=== PATIENT | male | born 1950 | race Caucasian/White ===

== ENCOUNTER 2018-06-28 03:17 | Emergency (ER) | payer MEDICARE, OTHER ==
[2018-06-28] MEDS ORDERED: IOVERSOL 320 100 ML VIAL IVP ONE ×3 (03:18→05:36)
[2018-06-28 04:34] LABS: CALCIUM 8.4 mg/dL (8.5-10.3); CREATININE 1.4 mg/dL (0.6-1.2)
[2018-06-28] MEDS ORDERED: POTASSIUM CHLOR 10 MEQ/100 ML 10 MEQ/100 ML BAG IV ONE (04:46)
[2018-06-28] MEDS ORDERED: POTASSIUM CHLORIDE 20 MEQ TABLET PO STA (04:46)
--- NOTE | 2018-06-28 05:25 | ED Physician Documentation ---
PD HPI FOCAL NEURO - Stated complaint Stated Complaint: L HAND NUMB - Chief complaint Chief Complaint: Neuro - History obtained from History obtained from: Patient, Family (spouse) - History of Present Illness Timing - onset: How many days ago (5) Timing - details: Still present Severity of deficit: Moderate Weakness: Hand, Right Associated symptoms: Neck pain Baseline status: positive: A&OX3, ambulatory, indep Similar symptoms before: Has not had sx before - Additional information Additional information: The patient is a 67-year-old male who presents with weakness of his right upper extremity. 5 days ago he experienced pain in his right hand, followed by weakness and numbness in his right hand. The pain has resolved, but he still cannot extend his hand at the wrist. His noticed associated drooping of his right eyelid and noticed that he was "tripping over his words." The speech difficulty and eyelid drooping resolved, as did the pain in the right hand. Today the patient experienced similar symptoms of the left hand, with transient pain and numbness of the hand, lasting for about 1 hour before resolving spontaneously. He has had no involvement of the lower extremities. His only remaining symptom is weakness of the right upper extremity. He denies fever or headache. He has experienced some discomfort in his neck. He has no history of similar symptoms in the past. His past history is significant for ORIF of right ankle fracture. He had postoperative MRSA infection. Review of Systems Constitutional: denies: Fever, Fatigue Eyes: denies: Decreased vision Ears: denies: Tinnitus/ringing Nose: denies: Congestion Throat: denies: Sore throat Cardiac: denies: Chest pain / pressure, Palpitations Respiratory: denies: Dyspnea, Cough GI: denies: Abdominal Pain, Nausea, Vomiting : denies: Dysuria, Incontinent Skin: denies: Rash Musculoskeletal: reports: Neck pain (mild, right > left.). denies: Back pain, Joint pain, Extremity swelling Neurologic: reports: Focal weakness (Right upper extremity.). denies: Altered mental status, Headache PD PAST MEDICAL HISTORY - Past Medical History Past Medical History: Yes Cardiovascular: None Respiratory: None Endocrine/Autoimmune: None GI: GERD : None HEENT: None Psych: Other Musculoskeletal: Other Derm: None Other Past Medical History: Insomnia; Chronic leg pain bilat - Past Surgical History Past Surgical History: Yes Ortho: Other HEENT: Tonsil/Adenoidectomy - Present Medications Home Medications: Ambulatory Orders Medication Instructions Recorded Confirmed Oxycodone HCl/Acetaminophen 1 each PO Q4HR PRN 08/09/15 06/28/18 [Percocet 10-325 mg Tablet] Pregabalin [Lyrica] 150 mg PO TID 08/09/15 06/28/18 Zolpidem [Ambien] 10 mg PO HS 08/09/15 06/28/18 - Allergies Allergies/Adverse Reactions: Allergies Allergy/AdvReac Type Severity Reaction Status Date / Time No Known Drug Allergies Allergy Verified 06/28/18 03:30 - Social History Does the pt smoke?: No Smoking Status: Never smoker Does the pt drink ETOH?: No Does the pt have substance abuse?: No - Immunizations Immunizations are current?: Yes - POLST Patient has POLST: No PD ED PE NORMAL - Vitals Vital signs reviewed: Yes (normal) - General General: Alert and oriented X 3, Well developed/nourished - HEENT HEENT: Atraumatic, PERRL, EOMI, Pharynx benign - Neck Neck: Supple, no meningeal sign, No bony TTP, No adenopathy, No JVD, Other (Mild tenderness to palpation along the paracervical musculature, right greater than left. Range of motion to the left exacerbates the pain on the right.) - Cardiac Cardiac: RRR, No murmur - Respiratory Respiratory: No respiratory distress, Clear bilaterally - Abdomen Abdomen: Soft, Non tender - Back Back: No CVA TTP, No spinal TTP - Derm Derm: No rash - Extremities Extremities: No calf tenderness / cord, Other (Lymphedema of the right lower extremity.) - Neuro Neuro: Alert and oriented X 3, manager functional 2-12 intact, No sensory deficit, Normal speech, Other (There is right wrist drop, with profound weakness of wrist extensors. There is mild weakness of wrist flexors. Light touch sensation is intact. No motor or sensory deficit is detected in the left upper extremity or the lower extremities.) Eye Opening: Spontaneous Motor: Obeys Commands Verbal: Oriented GCS Score: 15 Results - Vitals Vitals: Vital Signs - 24 hr 06/28/18 06/28/18 06/28/18 03:20 05:24 06:00 Temperature 37.4 C 36.5 C Heart Rate 99 79 79 Respiratory 18 16 16 Rate Blood Pressure 138/61 H 137/79 H 141/78 H O2 Saturation 100 97 99 06/28/18 06/28/18 06:14 07:00 Temperature 36.5 C Heart Rate 74 77 Respiratory 18 16 Rate Blood Pressure 136/78 H 141/75 H O2 Saturation 100 100 Oxygen O2 Source Room air - Labs Labs: Laboratory Tests 06/28/18 04:13 Sodium 136 Potassium 2.9 L Chloride 96 L Carbon Dioxide 25 Anion Gap 15.0 H BUN 19 Creatinine 1.4 H Estimated GFR (MDRD) 51 L Glucose 80 Calcium 8.4 L - Rads (name of study) Head CT w/o and w/contrast Radiology: Prelim report reviewed, EMP read contemporaneously, See rad report (1) No evidence of mass, infarct, or other focal abnormality. 2)Moderate ventriculomegaly. Differential considerations include central volume loss and NPH.) CT neck w/contrast Radiology: Prelim report reviewed, EMP read contemporaneously, See rad report (1) No CT evidence of central canal narrowing. 2) Mild left C2-C3, moderate right C4-C5, mild left C4-C5, and moderate right C5-C6 neural foraminal narrowing. 3) Remote appearing T1 compression fracture with 30% anterior height loss.) PD MEDICAL DECISION MAKING - ED course Complexity details: reviewed old records, reviewed results, re-evaluated p atient, considered differential, d/w patient, d/w family ED course: The patient's presentation is most consistent with a right radial nerve palsy. Central nervous system source was considered, but is less likely. Head CT with and without contrast revealed no abnormalities to account for the patient's neurologic deficit, cervical spine CT with contrast also did not reveal specific abnormality to account for the patient's symptoms. While his only current neurologic deficit is right radial nerve palsy, his history is suggestive of possible transient ptosis of the right eye, and transient involvement of the left upper extremity. This would be an unusual presentation for TIAs or for multiple sclerosis. His laboratory results reveal a low potassium of 2.9. Supplemental potassium was administered: 20 mEq orally and 10 mEq IV. Further treatment in the emergency department included application of a right wrist splint. I discussed with the patient and his the results of his imaging studies, and DVD copies were made for him to take to follow-up appointments. He is advised to contact his primary physician today and neurology follow-up is recommended. I discussed with them potentially worrisome signs or symptoms that should prompt reevaluation in the emergency department. Departure - Departure Disposition: 01 Home, Self Care Clinical Impression: Focal motor deficit Condition: Stable Instructions: ED Palsy Radial Nerve Follow-Up: [facility] [Primary Care Provider] - Comments: He can use ibuprofen, up to 800 mg 3 times daily for anti-inflammatory effect. Use the wrist splint if it provides comfort. Follow-up with your primary physician within 1 week if possible call to schedule an appointment. Take the DVD copy of your CT scans with you to the appointment. Return to the emergency department if you develop increasing numbness or weakness, or otherwise worsening symptoms. Discharge Date/Time: 06/28/18 07:10
--- NOTE | 2018-06-28 05:43 | CT Report ---
Reason: right sided neuro deficits, and transient left UE. Procedure Date: 06/28/2018 Accession Number: [id number] / [id number] Procedure: CT - HEAD W/WO CPT Code: FULL RESULT: EXAM: CT HEAD EXAM DATE: 06/28/2018 05:08 AM. CLINICAL HISTORY: Right hand numbness COMPARISON: None. TECHNIQUE: Multiaxial CT images were obtained from the foramen magnum to the vertex. Reformats: Sagittal and coronal. IV contrast: None. In accordance with CT protocol optimization, one or more of the following dose reduction techniques were utilized for this exam: automated exposure control, adjustment of mA and/or KV based on patient size, or use of iterative reconstructive technique. FINDINGS: Parenchyma: No intraparenchymal hemorrhage. No evidence of mass, midline shift, or CT findings of infarction. Mo-white differentiation is distinct. Extraaxial Spaces: Diffuse prominence of extra-axial spaces. Enlarged foramen magnum. No subdural or epidural collections identified. Ventricles: Moderate dilatation of lateral, third, and fourth ventricles. No mass-effect. No midline shift. Sinuses and Orbits: Imaged paranasal sinuses, orbits, and mastoids show no significant abnormality. Bones: No evidence of fracture or calvarial defect. Other: None. IMPRESSION: 1. No evidence of mass, infarct, or other focal abnormality. 2. Moderate ventriculomegaly. Differential considerations include central volume loss and NPH. RADIA ADDENDUM: 06/28/18 05:55 Exam performed both without and with contrast. IV contrast dose: 80 mL Optiray 320. Postcontrast FINDINGS: No enhancing abnormality. Normal opacification of venous sinuses.
[2018-06-28] MEDS ORDERED: KETOROLAC 30 MG/ML VIAL IVP STA (05:57)
[2018-06-28] MEDS ORDERED: SODIUM CHLORIDE 0.9% 1,000 ML IV ONE (05:57)
--- NOTE | 2018-06-28 06:02 | CT Report ---
Reason: neuro deficit right upper extremity. Procedure Date: 06/28/2018 Accession Number: [id number] / [id number] Procedure: CT - CERVICAL SPINE W CPT Code: FULL RESULT: EXAM: CT CERVICAL SPINE WITH CONTRAST EXAM DATE: 06/28/2018. CLINICAL HISTORY: Right hand numbness, decreased mine engineer strength COMPARISONS: HEAD W/WO 06/28/2018 5:08 AM. TECHNIQUE: Thin-section axial images were acquired of the cervical spine after administration of intravenous contrast. Post-processing: Coronal and sagittal reformats. Other: None. IV contrast: CONTRAST. In accordance with CT protocol optimization, one or more of the following dose reduction techniques were utilized for this exam: automated exposure control, adjustment of mA and/or KV based on patient size, or use of iterative reconstructive technique. FINDINGS: Alignment: No scoliosis or spondylolisthesis. Bones: There is height loss of T1 vertebral body there is deformity of superior endplate with 30% height loss of T1 vertebral body. No discrete fracture line. No adjacent soft tissue swelling. Interspace Levels/Facets: C1-C2: Unremarkable. C2-C3: There is moderate left facet hypertrophy. Mild left neural foraminal narrowing. C3-C4: There is moderate left facet hypertrophy. No central canal or neural foraminal narrowing. C4-C5: Disk height loss and osteophytosis. Moderate left and mild right facet hypertrophy. Moderate right and mild left neural foraminal narrowing. C5-C6: Disk height loss and endplate osteophytosis. No central canal narrowing. Moderate right neural foraminal narrowing. C6-C7: Disk height loss. No central canal narrowing. No significant neural foraminal narrowing. C7-T1: Unremarkable. Spinal Canal: No abnormally enhancing areas by CT. Musculature: Normal. No fatty atrophy. Other: The paravertebral and prevertebral soft tissues are normal. The lung apices are clear. IMPRESSION: 1. No CT evidence of central canal narrowing. 2. Mild left C2-C3, moderate right C4-C5, mild left C4-C5, and moderate right C5-C6 neural foraminal narrowing. 3. Remote appearing T1 compression fracture with 30% anterior height loss.. RADIA
[2018-06-28 07:37] VITALS: BP 141/75
== END 2018-06-28 07:10 | disposition home or self-care (01) ==
LOC: ED 03:17
DX: G56.31 Lesion of radial nerve, right upper limb (principal); R29.818 Other symptoms and signs involving the nervous system; I89.0 Lymphedema, not elsewhere classified; M48.02 Spinal stenosis, cervical region
CPT/HCPCS: 36415; 70470; 72126; 80048; 96361; 96365; 96375; 99283; 99285; A9270; Q9967

== ENCOUNTER 2018-08-07 20:53 | Emergency (ER) | payer MEDICARE, OTHER ==
--- NOTE | 2018-08-07 22:27 | ED Physician Documentation ---
History of Present Illness - Stated complaint Stated Complaint: BI LEG WOUND PX - Chief complaint Chief Complaint: Ext Problem - History obtained from History obtained from: Patient - History of Present Illness Timing: Chronic (but symptoms worsening over past 2-3 days) Pain level now: 6 Improved by: rest, elevation - Additonal information Additional information: Patient complains of bilateral lower extremity swelling and shooting pains. There is patchy redness on the left lower leg which has spread proximally over past 2 to 3 days. spouse says he had fever 102 yesterday and that he has had nausea and poor appetite, with some vomiting today Review of Systems Constitutional: reports: Fever. denies: Chills, Sweats GI: reports: Nausea, Vomiting. denies: Abdominal Pain Skin: reports: Rash Musculoskeletal: reports: Extremity pain, Extremity swelling PD PAST MEDICAL HISTORY - Past Medical History Cardiovascular: None Respiratory: None Endocrine/Autoimmune: None GI: GERD : None HEENT: None Psych: Other Musculoskeletal: Other Derm: None - Past Surgical History Past Surgical History: Yes Ortho: Other HEENT: Tonsil/Adenoidectomy - Present Medications Home Medications: Ambulatory Orders Medication Instructions Recorded Confirmed Oxycodone HCl/Acetaminophen 1 each PO Q4HR PRN 08/09/15 06/28/18 [Percocet 10-325 mg Tablet] Pregabalin [Lyrica] 150 mg PO TID 08/09/15 06/28/18 Zolpidem [Ambien] 10 mg PO HS 08/09/15 06/28/18 Clindamycin HCl [Clindamycin 300MG 300 mg PO Q6H #28 capsule 08/08/18 CAP] HYDROmorphone [Dilaudid] 2 mg PO Q4H PRN #20 tablet 08/08/18 - Allergies Allergies/Adverse Reactions: Allergies Allergy/AdvReac Type Severity Reaction Status Date / Time No Known Drug Allergies Allergy Verified 06/28/18 03:30 - Social History Does the pt smoke?: No Smoking Status: Never smoker Does the pt drink ETOH?: No Does the pt have substance abuse?: No - Immunizations Immunizations are current?: Yes - POLST Patient has POLST: No PD ED PE NORMAL - Vitals Vital signs reviewed: Yes - General General: Alert and oriented X 3, No acute distress, Well developed/nourished - Cardiac Cardiac: RRR, No murmur - Respiratory Respiratory: No respiratory distress, Clear bilaterally - Neuro Neuro: No motor deficit, No sensory deficit PD ED PE EXPANDED - Extremities Extremities: Pedal edema bilateral MISSY LE visual: 1 - rash (patchy erythema with clear/straw colored weeping) 2 - deformity (ulcer, dry and without exudate or significant erythema) Results - Vitals Vitals: Oxygen O2 Source Room air - Labs Labs: Laboratory Tests 08/07/18 08/07/18 08/07/18 23:03 23:03 23:03 WBC 8.9 RBC 3.96 L Hgb 8.3 L Hct 27.9 L MCV 70.4 L MCH 20.9 L MCHC 29.7 L RDW 22.3 H Plt Count 288 MPV 7.9 Neut # (Auto) 7.0 H Lymph # (Auto) 1.1 L Emmons # (Auto) 0.7 Eos # (Auto) 0.1 Baso # (Auto) 0.1 Absolute Nucleated RBC 0.01 Nucleated RBC % 0.1 Manual Slide Review Indicated Platelet Estimate NORMAL (130-450,000) Platelet Morphology NORMAL APPEARANCE RBC Morph Micro Appear 1+ MACROCYTOSIS Sodium 135 Potassium 3.3 L Chloride 100 L Carbon Dioxide 26 Anion Gap 9.0 BUN 12 Creatinine 1.1 Estimated GFR (MDRD) 67 L Glucose 100 Lactic Acid Calcium 8.4 L B-Natriuretic Peptide 739 H 08/07/18 23:03 WBC RBC Hgb Hct MCV MCH MCHC RDW Plt Count MPV Neut # (Auto) Lymph # (Auto) Emmons # (Auto) Eos # (Auto) Baso # (Auto) Absolute Nucleated RBC Nucleated RBC % Manual Slide Review Platelet Estimate Platelet Morphology RBC Morph Micro Appear Sodium Potassium Chloride Carbon Dioxide Anion Gap BUN Creatinine Estimated GFR (MDRD) Glucose Lactic Acid 0.9 Calcium B-Natriuretic Peptide PD MEDICAL DECISION MAKING - ED course Complexity details: reviewed old records, reviewed results, re-evaluated patient, considered differential, d/w patient, d/w family Departure - Departure Disposition: 01 Home, Self Care Clinical Impression: Cellulitis Qualifiers: Site of cellulitis: extremity Site of cellulitis of extremity: lower extremity Laterality: left Qualified Code(s): L03.116 - Cellulitis of left lower limb Condition: Good Instructions: ED Infec Skin Cellulitis Follow-Up: [facility] [Primary Care Provider] - Prescriptions: Clindamycin HCl [Clindamycin 300MG CAP] 300 mg PO Q6H #28 capsule HYDROmorphone [Dilaudid] 2 mg PO Q4H PRN #20 tablet PRN Reason: Pain Discharge Date/Time: 08/08/18 03:01
[2018-08-07] MEDS ORDERED: SODIUM CHLORIDE 0.9% 500 ML IV STA (22:51)
[2018-08-07] MEDS ORDERED: cefTRIAXone 1 GM in SODIUM CHLORIDE 0.9% MINIBAG 100 ML IV STA (22:51)
[2018-08-07] MEDS ORDERED: HYDROmorphone 1 MG/ML CARPUJECT IVP STA ×2 (22:51→23:38)
[2018-08-07] MEDS ORDERED: ONDANSETRON 4 MG/2 ML VIAL IVP STA (22:51)
[2018-08-07 23:18] LABS: BASOPHILS # (AUTO) 0.1 10^3/uL (0.0-0.1); BASOPHILS % (AUTO) 0.7 %; CALCIUM 8.4 mg/dL (8.5-10.3); CREATININE 1.1 mg/dL (0.6-1.2); EOSINOPHILS # (AUTO) 0.1 10^3/uL (0.0-0.7); EOSINOPHILS % (AUTO) 0.9 %; HGB - HEMOGLOBIN 8.3 g/dL (14.0-18.0); LYMPHOCYTES # (AUTO) 1.1 10^3/uL (1.5-3.5); LYMPHOCYTES % (AUTO) 12.1 %; MEAN CORPUSCULAR HEMOGLOBIN 20.9 pg (27.0-31.0); MEAN CORPUSCULAR HGB CONC 29.7 g/dL (32.0-36.0); MEAN CORPUSCULAR VOLUME 70.4 fL (80.0-94.0); MEAN PLATELET VOLUME 7.9 fL (7.4-11.4); MONOCYTES # (AUTO) 0.7 10^3/uL (0.0-1.0); MONOCYTES % (AUTO) 7.8 %; NEUTROPHILS % (AUTO) 78.5 %; PLT - PLATELET COUNT 288 10^3/uL (130-450); RED BLOOD COUNT 3.96 10^6/uL (4.70-6.10); RED CELL DISTRIBUTION WIDTH 22.3 % (12.0-15.0); WHITE BLOOD COUNT 8.9 x10^3/uL (4.8-10.8)
[2018-08-07 23:34] LABS: PLATELET ESTIMATE, MANUAL NORMAL (130-450,000) (NORMAL); PLATELET MORPHOLOGY NORMAL APPEARANCE (NORMAL)
[2018-08-08] MEDS ORDERED: HYDROmorphone 1 MG/ML CARPUJECT IVP STA (02:40)
[2018-08-08 03:00] VITALS: BP 153/93
== END 2018-08-08 03:01 | disposition home or self-care (01) ==
LOC: ED 20:53
DX: L03.116 Cellulitis of left lower limb (principal); L97.319 Non-pressure chronic ulcer of right ankle with unspecified severity
CPT/HCPCS: 36415; 80048; 83605; 83880; 85025; 96365; 96375; 96376; 99283; 99284; J1170

== ENCOUNTER 2019-04-25 14:43 | Outpatient (CLI) | payer MEDICARE, OTHER | END 2019-04-25 14:44 | disposition EMS.NT | LOC: EMS 14:43 | PROVIDERS: ATTEND Surgery | DX: S00.83XA Contusion of other part of head, initial encounter (principal); V58.5XXA Driver of pick-up truck or van injured in noncollision transport accident in traffic accident, initial encounter; W22.10XA Striking against or struck by unspecified automobile airbag, initial encounter; Y92.410 Unspecified street and highway as the place of occurrence of the external cause ==

== ENCOUNTER 2019-06-26 23:52 | Outpatient (CLI) | payer MEDICARE, OTHER | END 2019-06-26 23:59 | disposition EMS.NT | LOC: EMS 23:52 | PROVIDERS: ATTEND Surgery | DX: Z04.1 Encounter for examination and observation following transport accident (principal) ==

== ENCOUNTER 2019-06-27 06:14 | Outpatient (CLI) | payer MEDICARE, OTHER | END 2019-06-27 06:15 | disposition critical access hospital (66) | LOC: EMS 06:14 | PROVIDERS: ATTEND Surgery | DX: I46.9 Cardiac arrest, cause unspecified (principal) | CPT/HCPCS: A0425; A0427 ==

== ENCOUNTER 2019-06-27 06:25 | Emergency (ER) | payer MEDICARE, OTHER ==
[2019-06-27] MEDS ORDERED: EPINEPHrine 1 MG/ML AMP ONE (06:38)
[2019-06-27] MEDS ORDERED: SODIUM CHLORIDE 0.9% 1,000 ML IV ONE ×2 (06:40→07:20)
[2019-06-27] MEDS ORDERED: EPINEPHrine 4 MG in DEXTROSE 5% 246 ML IVP STA ×2 (06:45→09:44)
[2019-06-27 06:49] LABS: BASOPHILS % (AUTO) 0.4 %; EOSINOPHILS % (AUTO) 0.5 %; LYMPHOCYTES % (AUTO) 29.2 %; MEAN CORPUSCULAR HEMOGLOBIN 20.6 pg (27.0-31.0); MEAN CORPUSCULAR HGB CONC 25.2 g/dL (32.0-36.0); MEAN CORPUSCULAR VOLUME 81.7 fL (80.0-94.0); MEAN PLATELET VOLUME 9.8 fL (7.4-11.4); MONOCYTES % (AUTO) 3.5 %; NEUTROPHILS % (AUTO) 58.2 %; PLT - PLATELET COUNT 140 10^3/uL (130-450); RED BLOOD COUNT 2.57 10^6/uL (4.70-6.10); RED CELL DISTRIBUTION WIDTH 20.6 % (12.0-15.0); WHITE BLOOD COUNT 7.7 x10^3/uL (4.8-10.8)
[2019-06-27 06:57] LABS: INR 1.3 (0.8-1.2); PT - PROTHROMBIN TIME 14.4 secs (9.9-12.6)
[2019-06-27 07:04] LABS: PARTIAL THROMBOPLASTIN TIME 77.2 secs (24.9-33.3)
[2019-06-27 07:05] LABS: HGB - HEMOGLOBIN 5.3 g/dL (14.0-18.0)
[2019-06-27 07:06] LABS: ABNORMAL LYMPHS % (MANUAL) 0 %
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
[2019-06-27] MEDS ORDERED: IOVERSOL 320 100 ML VIAL IVP ONE ×3 (07:29→09:55)
[2019-06-27 07:36] LABS: BAND NEUTROPHILS % (MANUAL) 5 %; LYMPHOCYTES # (MANUAL) 2.8 10^3/uL (1.5-3.5); LYMPHOCYTES % (MANUAL) 36 %; METAMYELOCYTES % (MANUAL) 1 %; MONOCYTES # (MANUAL) 0.3 10^3/uL (0.0-1.0)
[2019-06-27 07:37] LABS: DIFFERENTIAL COMMENT MANUAL DIFFERENTIAL; PLATELET ESTIMATE, MANUAL NORMAL (130-450,000) (NORMAL); PLATELET MORPHOLOGY NORMAL APPEARANCE (NORMAL)
[2019-06-27 07:48] LABS: ALBUMIN/GLOBULIN RATIO 0.7 (1.0-2.2); BILIRUBIN,TOTAL 0.4 mg/dL (0.2-1.0); CALCIUM 8.1 mg/dL (8.5-10.3); CREATININE 2.2 mg/dL (0.6-1.2); SALICYLATE 7.3 mg/dL
[2019-06-27 08:05] LABS: HGB - HEMOGLOBIN 5.9 g/dL (14.0-18.0)
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
[2019-06-27 08:12] LABS: MUDS CUTOFF CONCENTRATIONS CUTOFF CONC BELOW:
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
[2019-06-27 08:18] LABS: BILIRUBIN,URINE NEGATIVE (NEGATIVE); GLUCOSE, URINE (UA) NEGATIVE (NEGATIVE); KETONES,URINE (UA) NEGATIVE (NEGATIVE); LEUKOCYTE ESTERASE, URINE NEGATIVE (NEGATIVE); NITRITE,URINE NEGATIVE (NEGATIVE); OCCULT BLOOD,URINE TRACE-INTA (NEGATIVE); PH,URINE 5.5 PH (5.0-7.5); PROTEIN,URINE 30 mg/dL (NEGATIVE); UROBILINOGEN,URINE 0.2 (NORMAL) E.U./dL (NORMAL)
[2019-06-27 08:20] LABS: CLARITY,URINE HAZY (CLEAR)
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
--- NOTE | 2019-06-27 08:24 | ANESTHESIA PROCEDURE NOTE ---
Anesth Central Line Template - Central Line Central Line Preparation: Unable to obtain consent, Time out completed, Ultra sound used Central line location: Right IJ Central line type: Triple lumen Central line catheter tip site resides: waiting for rediolographic confirmation Central line aftercare: Chlorhexidine disc placed, Secured, No pneumothorax, No complications, Bundle checklist complete, Pt tolerated well, Other (Waiting for radiographic confirmation. Patient intubated on epi drip. Emergency CVL required. Consent not obtained for CVL. tripple lumen 7 korean cvl placed.)
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
[2019-06-27 08:34] LABS: BACTERIA,URINE Few /HPF (None Seen); CASTS, URINE 0-2 Hyaline Casts /LPF; EPITHELIAL CELLS,UR FEW Renal Tubular /HPF (<= Few); RBC,URINE 0-5 /HPF (0-5); SPERM,URINE PRESENT; SQUAMOUS EPITHELIAL CELL,UR RARE Squamous (<= Few)
[2019-06-27 08:35] LABS: AMPHETAMINE SCREEN,URINE NEGATIVE (NEGATIVE); BENZODIAZEPINES SCREEN, URINE NEGATIVE (NEGATIVE); COCAINE SCREEN URINE NEGATIVE (NEGATIVE); METHADONE SCREEN, URINE NEGATIVE (NEGATIVE); METHAMPHETAMINES SCREEN, URINE NEGATIVE (NEGATIVE); OPIATE SCREEN, URINE NEGATIVE (NEGATIVE); OXYCODONE SCREEN, URINE POSITIVE (NEGATIVE); PROPOXYPHENE SCREEN, URINE NEGATIVE (NEGATIVE); TRICYCLIC ANTIDEPRESSANT,URINE NEGATIVE (NEGATIVE)
[2019-06-27 08:38] LABS: ABG BASE EXCESS -19.6 mmol/L (-2.0-3.0); ABG HCO3 9.4 mmol/L (22.0-26.0); ABG OXYGEN SATURATION 100 % (94-98); ABG PCO2 35 mmHg (34-45); ALLEN TEST POSITIVE
[2019-06-27 08:40] LABS: ABG PH 7.05 (7.35-7.45); ABG PO2 463 mmHg (80-100); ABG TCO2 10.4 MMOL/L (21.0-29.0)
[2019-06-27] MEDS ORDERED: SODIUM BICARBONATE 150 MEQ in DEXTROSE 5% 1,000 ML IV STA (08:42)
--- NOTE | 2019-06-27 08:45 | XRAY Report ---
Reason: NG LINE PLACEMENT Procedure Date: 06/27/2019 Accession Number: [id number] / [id number] Procedure: XR - Abdomen 1 View X-Ray CPT Code: 73046 Final Report FULL RESULT: EXAM: ABDOMEN RADIOGRAPHY EXAM DATE: 06/27/2019 08:33 AM. CLINICAL HISTORY: NG line placement. COMPARISON: CHEST 1 VIEW 06/27/2019 6:22 AM. TECHNIQUE: 1 view. FINDINGS: Bowel Gas Pattern: The bowel gas pattern is largely obscured by the trauma board. Other: The soft tissues of the abdomen are also obscured by the trauma board. There are multiple tubes and lines overlying the upper abdomen. There is a line entering the abdomen in the region of the esophagus, terminating in the region of the gastric fundus. IMPRESSION: NG tube in satisfactory position. RADIA
--- NOTE | 2019-06-27 08:46 | XRAY Report ---
Reason: new IJ central line places, new orogastric tube Procedure Date: 06/27/2019 Accession Number: [id number] / [id number] Procedure: XR - Chest for Line Placement CPT Code: Final Report FULL RESULT: EXAM: CHEST RADIOGRAPHY EXAM DATE: 06/27/2019 08:33 AM. CLINICAL HISTORY: New internal jugular central line placement. New orogastric tube. COMPARISON: CHEST 1 VIEW 06/27/2019 6:22 AM. TECHNIQUE: 1 view. FINDINGS: Lungs/Pleura: There is persistent patchy consolidation of both lungs. Mediastinum: There is mild cardiac enlargement. Other: ETT, right IJV line and NG tube are in satisfactory position. IMPRESSION: New tubes and lines in satisfactory position. RADIA
--- NOTE | 2019-06-27 09:13 | CT Report ---
Reason: Neck trauma, midline tenderness Procedure Date: 06/27/2019 Accession Number: [id number] / [id number] Procedure: CT - CERVICAL SPINE WO CPT Code: Final Report FULL RESULT: EXAM: CT CERVICAL SPINE WITHOUT CONTRAST DATE: 06/27/2019 07:21 AM. HISTORY: Neck trauma, midline tenderness. COMPARISONS: CT HEAD WO 06/27/2019 7:[address] CHEST W 06/27/2019 7:[address] cervical spine 06/28/2018. TECHNIQUE: Thin-section axial images were acquired of the cervical spine without contrast. Post-processing: Coronal and sagittal reformats. Other: None. In accordance with CT protocol optimization, one or more of the following dose reduction techniques were utilized for this exam: automated exposure control, adjustment of mA and/or KV based on patient size, or use of iterative reconstructive technique. FINDINGS: Alignment: There is mild right convex curvature of the cervical spine. No scoliosis. Bones: No fracture or bone lesion of the cervical spine. There is mild anterior wedging with superior endplate compression deformity of the T1 vertebral body, unchanged compared to 06/28/2018. Interspace Levels/Facets: C1-C2: There are minimal degenerative changes at the atlantodental joint. C2-C3: There is mild disk height loss, mild degenerative change of the right facet joint, and moderate degenerative change of the left facet joint. C3-C4: Mild disk height loss, mild degenerative change of the right facet joint, and moderate degenerative change of the left facet joint. C4-C5: Mild disk height loss, mild degenerative change of the right facet joint, and moderate degenerative change of the left central. C5-C6: Moderate disk height loss and anterior endplate osteophyte formation. There are mild bilateral degenerative facet changes. C6-C7: Moderate disk height loss and anterior endplate ossified formation. There are mild bilateral degenerative facet changes. C7-T1: Mild disk height loss and mild bilateral degenerative facet changes. Musculature: Normal. No fatty atrophy. Other: Endotracheal tube is present, limiting evaluation of the prevertebral soft tissues. The paravertebral and prevertebral soft tissues are unremarkable. There are patchy areas of consolidation in the bilateral lung apices. IMPRESSION: 1. No fracture or other acute osseous abnormality of the cervical spine. 2. Chronic mild anterior wedge compression deformity of the superior endplate of the T1 vertebral body. This is unchanged compared prior CT cervical spine on 06/28/2018. 3. Multilevel degenerative changes of the cervical spine, as described above. RADIA
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
[2019-06-27 12:49] VITALS: BP 129/74
== END 2019-06-27 10:55 | disposition short-term general hospital (02) ==
LOC: EDUNIT# → ED 06:25
DX: I46.9 Cardiac arrest, cause unspecified (principal); D64.9 Anemia, unspecified; S22.43XA Multiple fractures of ribs, bilateral, initial encounter for closed fracture; S22.20XA Unspecified fracture of sternum, initial encounter for closed fracture; V89.2XXA Person injured in unspecified motor-vehicle accident, traffic, initial encounter; Y93.89 Activity, other specified
CPT/HCPCS: 36415; 36430; 36600; 70450; 71260; 72125; 74018; 74177; 80053; 81001; 82803; 83690; 84443; 85014; 85018; 85025; 85610; 85730; 86850; 86900; 86901; 86920; 87086; 93005; 96361; 96374; 96375; 99291; 99292; P9016; Q9967; 71045; 80306; 80307; 80320; 80329; 81003